=== PATIENT | female | born 1940 | race Asian ===

== ENCOUNTER → 2016-12-27 | Outpatient (CLI) | payer MEDICARE, BC ==
[~2016-12-27] VITALS: Ht 149.9 cm; Wt 52.0 kg
[~2016-12-27] MED LIST: BENZ-26 PO; FLUT16H NASAL; FLUT1DIS5 IH; INSU100C3 SQ; INSU100V12 SQ; LIPOSOMAL VIT C PO; LISI-662 PO; MONT10TA21 PO; MULT1CAP32 PO; NITR0.4T27 SL; TIOT185 IH; [UNRECOGNIZED DRUG - OTHER] PO
[2016-12-27 11:08] VITALS: BP 147/57
== END | disposition home or self-care (01) ==
LOC: SRCNTR 11:00
PROVIDERS: ATTEND Internal Medicine Critical Care Medicine
DX: E11.9 Type 2 diabetes mellitus without complications (principal); J45.21 Mild intermittent asthma with (acute) exacerbation; I11.0 Hypertensive heart disease with heart failure; I50.9 Heart failure, unspecified; C50.819 Malignant neoplasm of overlapping sites of unspecified female breast; K21.9 Gastro-esophageal reflux disease without esophagitis; R42 Dizziness and giddiness; Z86.73 Personal history of transient ischemic attack (TIA), and cerebral infarction without residual deficits
CPT/HCPCS: G0463

== ENCOUNTER → 2017-03-28 | Outpatient (CLI) | payer MEDICARE, BC ==
[~2017-03-28] VITALS: Ht 149.9 cm; Wt 53.0 kg
[2017-03-28 11:13] VITALS: BP 145/61
== END | disposition home or self-care (01) ==
LOC: SRCNTR 10:57
PROVIDERS: ATTEND Internal Medicine Critical Care Medicine
DX: E11.9 Type 2 diabetes mellitus without complications (principal); J45.21 Mild intermittent asthma with (acute) exacerbation; I11.0 Hypertensive heart disease with heart failure; I50.9 Heart failure, unspecified; C50.819 Malignant neoplasm of overlapping sites of unspecified female breast; K21.9 Gastro-esophageal reflux disease without esophagitis; R42 Dizziness and giddiness
CPT/HCPCS: G0463

== ENCOUNTER → 2017-09-09 | Outpatient (CLI) | payer MEDICARE, BC ==
[~2017-09-09] VITALS: Ht 149.9 cm; Wt 52.0 kg
[~2017-09-09] MED LIST changes: -BENZ-26 PO; +BENZ-51 PO; -LIPOSOMAL VIT C PO; -NITR0.4T27 SL; +NITR0.4T50 SL
[2017-09-09 13:09] VITALS: BP 130/58
== END | disposition home or self-care (01) ==
LOC: SRCNTR 12:58
PROVIDERS: ATTEND Internal Medicine Critical Care Medicine
DX: J45.21 Mild intermittent asthma with (acute) exacerbation (principal); E11.9 Type 2 diabetes mellitus without complications; I11.0 Hypertensive heart disease with heart failure; I50.9 Heart failure, unspecified; C50.819 Malignant neoplasm of overlapping sites of unspecified female breast; K21.9 Gastro-esophageal reflux disease without esophagitis; Z86.73 Personal history of transient ischemic attack (TIA), and cerebral infarction without residual deficits
CPT/HCPCS: G0463